=== PATIENT | female | born 1945 | race Caucasian/White ===

== ENCOUNTER 2016-12-19 16:34 | Inpatient (IN) | payer OTHER ==
[~2016-12-19] VITALS: Ht 167.6 cm; Wt 86.7 kg
[2016-12-19] MEDS ORDERED: ASPI81TA31 PO (17:01)
[2016-12-19] MEDS ORDERED: SIMV40TA5 PO (17:01)
[2016-12-19 17:32] LABS: *BILIRUBIN,URIN NEGATIVE (NEGATIVE); *BLOOD, URINE Trace-lysed (NEGATIVE); *COLOR,URINE YELLOW (YELLOW); *KETONES,URINE NEGATIVE (NEGATIVE); *PROTEIN,URINE NEGATIVE (NEGATIVE); NITRITE, URINE NEGATIVE (NEGATIVE); UGLUCOSE NEGATIVE (NEGATIVE)
[2016-12-19 17:33] LABS: BASOPHILS # (AUTO) 0.1 K/uL (0.0-8.0); BASOPHILS % (AUTO) 0.6 % (0.0-2.0); EOSINOPHILS # (AUTO) 0.2 K/uL (0.0-0.7); EOSINOPHILS % (AUTO) 2.1 % (0.0-7.0); HEMATOCRIT 38.2 % (31.2-41.9); HEMOGLOBIN 12.9 g/dL (10.9-14.3); LYMPHOCYTES # (AUTO) 1.4 K/uL (20.0-40.0); LYMPHOCYTES % (AUTO) 16.5 % (20.5-51.5); MEAN CORPUSCULAR HEMOGLOBIN 29.9 uug (24.7-32.8); MEAN CORPUSCULAR HGB CONC 34 g/dL (32.3-35.6); MEAN CORPUSCULAR VOLUME 88.1 fL (75.5-95.3); MONOCYTES # (AUTO) 0.7 K/uL (2.0-10.0); MONOCYTES % (AUTO) 8.2 % (0.0-11.0); NEUTROPHILS % (AUTO) 72.6 % (38.5-71.5); PLATELET COUNT (AUTO) 151 K/uL (179-408); RED BLOOD CELL COUNT(AUTO) 4.34 MIL/uL (3.63-4.92); RED CELL DISTRIBUTION WIDTH 14.9 % (12.3-17.7); WHITE BLOOD COUNT (AUTO) 8.4 K/uL (3.8-11.8)
[2016-12-19 17:36] LABS: CALCIUM 9.1 mg/dL (8.5-10.1); CREATININE 0.9 mg/dL (0.6-1.3); POTASSIUM 4.1 mmol/L (3.5-5.1)
[2016-12-19 17:39] LABS: *CLARITY,URINE HAZY (CLEAR); LEUKOCYTE ESTERASE ,URINE TRACE (NEGATIVE)
[2016-12-19 17:40] LABS: BACTERIA,URINE MANY /HPF (NONE SEEN); SQUAMOUS EPITHELIAL CELL,UR MODERATE /HPF (NONE SEEN); WBC,URINE 20-50 /HPF (0-3)
[2016-12-19 17:45] LABS: ALBUMIN 3.7 g/dL (3.4-5.0); BILIRUBIN,DIRECT 0.2 mg/dL (0.0-0.2); BILIRUBIN,TOTAL 0.7 mg/dL (0.2-1.0); TOTAL PROTEIN, SERUM 7.5 g/dL (6.4-8.2)
[2016-12-19] MEDS ORDERED: IOHEXOL 300MG/ML 100 ML INFUS..BTL ONE (17:56)
[2016-12-19] MEDS ORDERED: IV NORMAL SALINE 250 ML IV ONE (17:56)
[2016-12-19] MEDS ORDERED: NORMAL SALINE FLUSH 10 ML DISP.SYRIN ONE (17:56)
[2016-12-19] MEDS ORDERED: CEFTRIAXONE 1 G in IV DEXTROSE 5% 50 ML IV ONE (18:15)
[2016-12-19] MEDS ORDERED: CEFTRIAXONE 1 G VIAL ONE (18:28)
[2016-12-19] MEDS ORDERED: HYDROCODONE/APAP 5-325MG TABLET PO PRN (18:45)
[2016-12-19] MEDS ORDERED: Z GUARD REMEDY PASTE 57 GM TUBE TOP PRN (18:45)
[2016-12-19] MEDS ORDERED: ONDANSETRON 4 MG/2 ML VIAL IV PRN (18:45)
[2016-12-19] MEDS ORDERED: ACETAMINOPHEN 325 MG TABLET PO PRN (18:45)
[2016-12-19] MEDS ORDERED: TEMAZEPAM 7.5 MG CAPSULE PO PRN (18:45)
[2016-12-19] MEDS ORDERED: MORPHINE SULFATE 2 MG/1 ML DISP.SYRIN IV PRN (18:45)
[2016-12-19] MEDS ORDERED: MAGNESIUM HYDROXIDE 30 ML LIQUID UDC PO PRN (18:45)
[2016-12-19 20:20] VITALS: BP 132/73
--- NOTE | 2016-12-19 20:22 | NUR ---
Pt. admitted to [facility], under care of Dr. Romero Belongs List completed
--- NOTE | 2016-12-19 20:30 | NUR ---
PATIENT RECEIVED FROM ER BIB STAFF VIA [facility]. PLACED IN ROOM 215. PT IS ALERT AND ORIENTED, ABLE TO MAKE NEEDS KNOW. VS STABLE. ON RA WITH SAT WNL. NO ACUTE DISTRESS NOTED. DENIES PAIN AT THIS TIME. ALL NEEDS ATTENDED AT THIS TIME. WILL CONTINUE TO MONITOR.
[2016-12-19] MEDS: ENOXAPARIN SODIUM 40 MG/0.4 ML DISP.SYRIN SQ SCH (21:00)
[2016-12-19] MEDS: SIMVASTATIN 40 MG TABLET PO SCH (21:53)
--- NOTE | 2016-12-19 21:53 | NUR ---
PATIENT REFUSED 2100 LOVENOX, EXPLAINED RISKS AND BENEFITS, BUT CONTINUED TO REFUSE. WILL CONTINUE TO MONITOR.
[2016-12-20 04:00] VITALS: BP 93/50
--- NOTE | 2016-12-20 05:46 | NUR ---
PT SLEPT WELL, NO ACUTE DISTRESS THROUGHOUT SHIFT. NO S/S OF RESPIRATORY DISTRESS NOTED. NO C/O PAIN. ALL NEEDS MET. CALL LIGHT WITHIN REACH. SAFETY AND COMFORT MAINTAINED.
[2016-12-20] MEDS: PANTOPRAZOLE SODIUM 40 MG TABLET.DR PO SCH (06:02)
[2016-12-20 06:57] LABS: BASOPHILS % (AUTO) 0.2 % (0.0-2.0); EOSINOPHILS # (AUTO) 0.4 K/uL (0.0-0.7); EOSINOPHILS % (AUTO) 4.7 % (0.0-7.0); HEMATOCRIT 35.3 % (31.2-41.9); HEMOGLOBIN 12.3 g/dL (10.9-14.3); LYMPHOCYTES # (AUTO) 0.7 K/uL (20.0-40.0); LYMPHOCYTES % (AUTO) 9.3 % (20.5-51.5); MEAN CORPUSCULAR HGB CONC 35 g/dL (32.3-35.6); MEAN CORPUSCULAR VOLUME 89.2 fL (75.5-95.3); MONOCYTES # (AUTO) 0.5 K/uL (2.0-10.0); MONOCYTES % (AUTO) 6.9 % (0.0-11.0); NEUTROPHILS # (AUTO) 6.2 K/uL (1.8-8.9); NEUTROPHILS % (AUTO) 78.9 % (38.5-71.5); PLATELET COUNT (AUTO) 160 K/uL (179-408); RED BLOOD CELL COUNT(AUTO) 3.96 MIL/uL (3.63-4.92); RED CELL DISTRIBUTION WIDTH 14.8 % (12.3-17.7); WHITE BLOOD COUNT (AUTO) 7.8 K/uL (3.8-11.8)
[2016-12-20 07:15] LABS: ALBUMIN 3.1 g/dL (3.4-5.0); BILIRUBIN,TOTAL 0.6 mg/dL (0.2-1.0); CALCIUM 8.6 mg/dL (8.5-10.1); CREATININE 0.9 mg/dL (0.6-1.3); MAGNESIUM 1.9 mg/dL (1.8-2.4); PHOSPHOROUS 4.7 mg/dL (2.5-4.9); POTASSIUM 4.6 mmol/L (3.5-5.1); TOTAL PROTEIN, SERUM 6.7 g/dL (6.4-8.2)
--- NOTE | 2016-12-20 08:30 | NUR ---
AWAKE COOPERATE WELL NO SOB OR PAIN ON FALL PRECAUTION BED ALARM ON AND CALL NICK WITHIN REACH
[2016-12-20] MEDS: ASPIRIN 81 MG TAB.CHEW PO SCH (08:47)
--- NOTE | 2016-12-20 09:30 | NUR ---
ASSIST OOB TO BRP AND UP IN CHAIR DOING WELL ,EAT BREAKFAST WITH GOOD APPETITE
[2016-12-20 11:41] VITALS: BP 122/63
--- NOTE | 2016-12-20 13:42 | NUR ---
WOUND CARE CONSULT: PT PRESENTS WITH LEFT LOWER LEG ULCER AND CRUSTED WOUND, PRESENT ON ADMISSION. RECOMMEND DPM/SURGICAL CONSULT. PT ABLE TO TURN AND REPOSITION IN BED AND AMBULATES TO BATHROOM PER NURSING STAFF. ALL SKIN PROTECTION AND WOUND RECOMMENDATIONS DISCUSSED WITH NURSING STAFF. MD IN AGREEMENT WITH PLAN OF CARE. Addendum: 12/20/16 at 1343 by ENMA VIZCARRA RN Amended: Links added.
[2016-12-20 16:34] VITALS: BP 114/72
--- NOTE | 2016-12-20 17:30 | NUR ---
RESTING WELL HEMODYNAMIC STATUS STABLE PAIN UNDER CONTROL SAFETY MEASURE PROVIDED CALL LIGHT WITHIN REACH
[2016-12-20] MEDS ORDERED: CEFTRIAXONE 1 G in IV DEXTROSE 5% 50 ML IV SCH (18:00)
--- NOTE | 2016-12-20 19:15 | NUR ---
PATIENT IN BED ALERT ORIENTED, ASSISTED TO BATHROOM FOR BLADDER ELIMINATION, NO SOB NO CHEST PAIN NOTED, TEACH PATIENT TO ELEVATE BOTH LOWER EXTREMETIES WITH PILLOW TO AVOID SWELLING OF LOWER EXTREMETY.
[2016-12-20 20:19] VITALS: BP 106/56
[2016-12-20] MEDS: ENOXAPARIN SODIUM 40 MG/0.4 ML DISP.SYRIN SQ SCH (21:00)
[2016-12-20] MEDS: SIMVASTATIN 40 MG TABLET PO SCH (21:00)
--- NOTE | 2016-12-20 21:15 | NUR ---
PATIENT REFUSED MEDICATIONS, EXPLAINED RISK AND BENEFIT, PATIENT STRONGLY REFUSED, NO SOB NO CHEST, DENIES PAIN OF LEFT POSTERIOR AND ANTERIOR LEG WOUND, KEPT SITE COVERED WITH DRESSING, ELEVATED WITH PILLOW, CALL LIGHT WITHIN REACH.
[2016-12-21 05:16] VITALS: BP 113/69
--- NOTE | 2016-12-21 05:16 | NUR ---
PATIENT ON AND OFF, REFUSED SLEEPING PILLS, GIVEN MORPHINE IV FOR MOANING/PAIN OF ABDOMEN AND LEFT LEG WOUND WITH HELP AFTER 30 MINUTES, KEPT LEGS ELEVATED, NO SOB NO CHEST PAIN NOTED, CONT TO MONITOR.
--- NOTE | 2016-12-21 05:18 | NUR ---
PATIENT SLEEP ON AND OFF ALL NIGHT, OFFERED SLEEPING PILL BUT REFUSED. KEPT COMFORTABLE.
[2016-12-21] MEDS: PANTOPRAZOLE SODIUM 40 MG TABLET.DR PO SCH (06:12)
--- NOTE | 2016-12-21 06:15 | NUR ---
PATIENT REFUSED PROTONIX, THROW AWAY THE MEDICATION AND STATED i DON'T NEED IT. EXPLAINED THE RISK AND BENEFIT STILL REFUSED THE MEDS.
[2016-12-21 07:00] LABS: BASOPHILS % (AUTO) 0.3 % (0.0-2.0); EOSINOPHILS # (AUTO) 0.4 K/uL (0.0-0.7); EOSINOPHILS % (AUTO) 6.6 % (0.0-7.0); HEMATOCRIT 36.7 % (31.2-41.9); HEMOGLOBIN 12.6 g/dL (10.9-14.3); LYMPHOCYTES # (AUTO) 0.9 K/uL (20.0-40.0); LYMPHOCYTES % (AUTO) 15.2 % (20.5-51.5); MEAN CORPUSCULAR HEMOGLOBIN 30.6 uug (24.7-32.8); MEAN CORPUSCULAR HGB CONC 34 g/dL (32.3-35.6); MEAN CORPUSCULAR VOLUME 89.1 fL (75.5-95.3); MONOCYTES # (AUTO) 0.6 K/uL (2.0-10.0); MONOCYTES % (AUTO) 9.9 % (0.0-11.0); NEUTROPHILS # (AUTO) 4.1 K/uL (1.8-8.9); PLATELET COUNT (AUTO) 158 K/uL (179-408); RED BLOOD CELL COUNT(AUTO) 4.12 MIL/uL (3.63-4.92); RED CELL DISTRIBUTION WIDTH 15.2 % (12.3-17.7)
[2016-12-21 07:07] LABS: CALCIUM 8.9 mg/dL (8.5-10.1); CREATININE 0.9 mg/dL (0.6-1.3); POTASSIUM 4.4 mmol/L (3.5-5.1)
--- NOTE | 2016-12-21 07:34 | NUR ---
Sleeping, comfortable. Bed alarm on
[2016-12-21 08:05] LABS: PLATELET ESTIMATE ADEQUATE
[2016-12-21 08:21] LABS: BAND % (MANUAL) 2 % (0-10); EOSINOPHILS % (MANUAL) 4 % (0-8); LYMPHOCYTES % (MANUAL) 11 % (20-40); MONOCYTES % (MANUAL) 4 % (2-10); NEUTROPHILS % (MANUAL) 79 % (42-75)
[2016-12-21] MEDS: ASPIRIN 81 MG TAB.CHEW PO SCH (08:29)
[2016-12-21 11:15] VITALS: BP 112/62
--- NOTE | 2016-12-21 13:00 | NUR ---
Wound care to left leg done as ordered. Bilateral foot care done
[2016-12-21 15:45] VITALS: BP 144/79
--- NOTE | 2016-12-21 17:11 | NUR ---
With fair appetite. denies pain and distress. Afebrile
[2016-12-21 19:00] VITALS: BP 153/53
[2016-12-21] MEDS: SIMVASTATIN 40 MG TABLET PO SCH (20:32)
[2016-12-21] MEDS: ENOXAPARIN SODIUM 40 MG/0.4 ML DISP.SYRIN SQ SCH (20:33)
[2016-12-21] MEDS: SULFAMETH/TRIMETH 800/160 MG TABLET PO SCH (20:33)
--- NOTE | 2016-12-21 21:15 | NUR ---
PATIENT ALERT ABLE TO MAKE NEEDS KNOWN, NO SOB NO CHEST PAIN, LEFT LEG DRESSING INTACT, TAUGHT TO ELEVATE THE LEGS WITH PILLOWS, CONT TO MONITOR.
[2016-12-22 05:00] VITALS: BP 106/52
--- NOTE | 2016-12-22 05:48 | NUR ---
PATIENT SLEPT MOST OF THE NIGHT, DENIES PAIN, NO SOB NO CHEST PAIN NOTED, KEPT LEGS ELEVATED, NO ASE NOTED FROM ABX, CONT TO MONITOR.
[2016-12-22] MEDS: PANTOPRAZOLE SODIUM 40 MG TABLET.DR PO SCH (06:22)
[2016-12-22 06:38] LABS: BASOPHILS % (AUTO) 0.5 % (0.0-2.0); EOSINOPHILS # (AUTO) 0.4 K/uL (0.0-0.7); EOSINOPHILS % (AUTO) 5.9 % (0.0-7.0); HEMATOCRIT 36.5 % (31.2-41.9); HEMOGLOBIN 12.4 g/dL (10.9-14.3); LYMPHOCYTES % (AUTO) 15.6 % (20.5-51.5); MEAN CORPUSCULAR HEMOGLOBIN 30.5 uug (24.7-32.8); MEAN CORPUSCULAR HGB CONC 34 g/dL (32.3-35.6); MEAN CORPUSCULAR VOLUME 89.9 fL (75.5-95.3); MONOCYTES # (AUTO) 0.6 K/uL (2.0-10.0); MONOCYTES % (AUTO) 8.6 % (0.0-11.0); NEUTROPHILS # (AUTO) 4.6 K/uL (1.8-8.9); NEUTROPHILS % (AUTO) 69.4 % (38.5-71.5); PLATELET COUNT (AUTO) 160 K/uL (179-408); RED BLOOD CELL COUNT(AUTO) 4.06 MIL/uL (3.63-4.92); RED CELL DISTRIBUTION WIDTH 14.7 % (12.3-17.7); WHITE BLOOD COUNT (AUTO) 6.6 K/uL (3.8-11.8)
[2016-12-22 06:46] LABS: CALCIUM 8.9 mg/dL (8.5-10.1); CREATININE 0.9 mg/dL (0.6-1.3); POTASSIUM 4.5 mmol/L (3.5-5.1)
[2016-12-22 07:29] LABS: LYMPHOCYTES % (MANUAL) 23 % (20-40); NEUTROPHILS % (MANUAL) 66 % (42-75)
[2016-12-22 07:30] LABS: EOSINOPHILS % (MANUAL) 5 % (0-8); MONOCYTES % (MANUAL) 6 % (2-10); PLATELET ESTIMATE ADEQUATE
[2016-12-22] MEDS: SULFAMETH/TRIMETH 800/160 MG TABLET PO SCH (09:13)
[2016-12-22] MEDS: ASPIRIN 81 MG TAB.CHEW PO SCH (09:13)
== END 2016-12-22 14:30 | disposition home or self-care (01) | DRG 690 ==
LOC: ER 16:36 → MED 20:06
PROVIDERS: ADMIT Family Medicine; ATTEND Family Medicine
DX: N39.0 Urinary tract infection, site not specified (principal); E78.5 Hyperlipidemia, unspecified; F03.90 Unspecified dementia, unspecified severity, without behavioral disturbance, psychotic disturbance, mood disturbance, and anxiety; E66.9 Obesity, unspecified; I11.9 Hypertensive heart disease without heart failure; Z79.899 Other long term (current) drug therapy; Z68.30 Body mass index [BMI] 30.0-30.9, adult; B96.4 Proteus (mirabilis) (morganii) as the cause of diseases classified elsewhere; K57.90 Diverticulosis of intestine, part unspecified, without perforation or abscess without bleeding; K80.20 Calculus of gallbladder without cholecystitis without obstruction
CPT/HCPCS: 36415; 83690; 83735; 84100; 85025; 85730; 87077; 87086; 93005; A4663; J0696; J1650; J2270; J3490; J7040; J7050; J7060; Q9967

== ENCOUNTER 2017-06-05 17:20 | Inpatient (IN) | payer MEDICARE, MEDICAID ==
[~2017-06-05] VITALS: Ht 167.6 cm; Wt 88.9 kg
[~2017-06-05 17:20] MED LIST: ASPI81TA31 PO; SIMV40TA5 PO
[2017-06-05] MEDS ORDERED: PIPERACILLIN SODIUM/TAZOBACTAM 3.375 G in IV DEXTROSE 5% 50 ML IV ONE (18:00)
[2017-06-05] MEDS ORDERED: IV NORMAL SALINE 1000 ML BAG IV ONE (18:00)
[2017-06-05] MEDS ORDERED: VANCOMYCIN IV 1,000 MG in IV DEXTROSE 5% 250 ML IV ONE (18:00)
[2017-06-05 18:36] LABS: CARBON DIOXIDE 31 mmol/L (21-32); CHLORIDE 108 mmol/L (98-107); CREATININE 0.8 mg/dL (0.6-1.3); GLUCOSE 113 mg/dL (74-106); POTASSIUM 4.2 mmol/L (3.5-5.1); UREA NITROGEN, BLOOD 21 mg/dL (7-18)
[2017-06-05 18:39] LABS: EOSINOPHILS # (AUTO) 0.3 K/uL (0.0-0.7); LYMPHOCYTES # (AUTO) 1.2 K/UL (0.8-4.8); MONOCYTES # (AUTO) 0.6 K/UL (0.1-1.30)
[2017-06-05 18:44] LABS: BASOPHILS % (AUTO) 0.5 % (0.0-2.0); EOSINOPHILS % (AUTO) 4.4 % (0.0-7.0); HEMATOCRIT 38.1 % (37-47); HEMOGLOBIN 12.9 G/DL (12.0-16.0); LYMPHOCYTES % (AUTO) 15.5 % (20.5-51.5); MEAN CORPUSCULAR HEMOGLOBIN 30.7 UUG (27.0-31.0); MEAN CORPUSCULAR HGB CONC 34 g/dL (32.0-37.0); MEAN CORPUSCULAR VOLUME 90.4 FL (81.0-99.0); MONOCYTES % (AUTO) 7.7 % (0.0-11.0); NEUTROPHILS # (AUTO) 5.8 K/UL (1.8-8.9); NEUTROPHILS % (AUTO) 71.9 % (38.5-71.5); PLATELET COUNT (AUTO) 201 K/UL (150-450); RED BLOOD CELL COUNT(AUTO) 4.22 MIL/UL (4.2-5.4); WHITE BLOOD COUNT (AUTO) 7.9 K/UL (4.0-11.2)
[2017-06-05 18:48] LABS: ALANINE AMINOTRANSFERASE 21 U/L (14-59); ALKALINE PHOSPHATASE 108 U/L (50-136); ASPARTATE AMINOTRANSFERASE 17 U/L (15-37); BILIRUBIN,DIRECT 0.1 mg/dL (0.0-0.2); BILIRUBIN,TOTAL 0.3 mg/dL (0.2-1.0); TOTAL PROTEIN, SERUM 7.2 g/dL (6.4-8.2)
--- NOTE | 2017-06-05 18:56 | NUR ---
Pt refused EKG.
[2017-06-05 19:03] LABS: EOSINOPHILS % (MANUAL) 1 % (0-8); LYMPHOCYTES % (MANUAL) 13 % (20-40); MONOCYTES % (MANUAL) 6 % (2-10); NEUTROPHILS % (MANUAL) 80 % (42-75)
[2017-06-05] MEDS ORDERED: PIPERACILLIN/TAZOBACTAM/D5W 50 ML IV ONE (19:53)
[2017-06-05] MEDS ORDERED: VANCOMYCIN IV 200 ML ONE (20:18)
[2017-06-05] MEDS ORDERED: ONDANSETRON 4 MG/2 ML VIAL IV ONE ×2 (21:00→22:30)
[2017-06-05] MEDS ORDERED: MORPHINE SULFATE 2 MG/1 ML DISP.SYRIN IV ONE ×2 (21:00→22:30)
[2017-06-05] MEDS ORDERED: ONDANSETRON 4 MG/2 ML VIAL ONE ×2 (21:11→22:42)
[2017-06-05] MEDS ORDERED: ACETAMINOPHEN/CODEINE 300-30 MG TABLET PO ONE (21:15)
[2017-06-05] MEDS ORDERED: MORPHINE SULFATE 4 MG/1 ML DISP.SYRIN ONE (21:21)
[2017-06-05] MEDS ORDERED: ACETAMINOPHEN/CODEINE 300-30 MG TABLET ONE (21:46)
--- NOTE | 2017-06-05 21:52 | NUR ---
Call placed to [facility], Dr. Reagan will be paged.
[2017-06-05] MEDS ORDERED: TEMAZEPAM 15 MG CAPSULE PO PRN (22:30)
[2017-06-05] MEDS ORDERED: MAGNESIUM HYDROXIDE 30 ML LIQUID UDC PO PRN (22:30)
[2017-06-05] MEDS ORDERED: ONDANSETRON 4 MG/2 ML VIAL IV PRN (22:30)
[2017-06-05] MEDS ORDERED: ACETAMINOPHEN 325 MG TABLET PO PRN (22:30)
[2017-06-05] MEDS ORDERED: MORPHINE SULFATE 2 MG/1 ML DISP.SYRIN ONE (22:43)
--- NOTE | 2017-06-05 22:56 | NUR ---
Pt. admitted to TELE, under care of Dr. Reagan Belongs List completed
--- NOTE | 2017-06-05 23:00 | NUR ---
Received patient from ED via gurney, alert, awake, oriented and verbally responsive. Assessment done, noted with BLE edema (left 3+, right 2+) elevated with pillow. Also noted with left leg cellulitis, wound care rendered, cleansed with NSS and covered with dry dressing. Patient tolerated well with the procedure. Patient complained of pain 6/10 on his left leg, Morphine 2mg was given at ED prior to transport. Routine admission done. Call light in reach. Safety measures provided. Will continue to monitor.
[2017-06-05 23:45] VITALS: BP 130/66
[2017-06-06] MEDS ORDERED: PIPERACILLIN SODIUM/TAZO 3.375 GM VIAL ONE (00:42)
[2017-06-06 04:00] VITALS: BP 120/64
--- NOTE | 2017-06-06 05:35 | NUR ---
Patient refused blood draw for AM labs.
[2017-06-06] MEDS: PIPERACILLIN/TAZOBACTAM/D5W 3.375 G in PREMIXED 1 EACH IV SCH ×3 (05:56→21:56)
[2017-06-06] MEDS: PANTOPRAZOLE SODIUM 40 MG TABLET.DR PO SCH (07:21)
--- NOTE | 2017-06-06 07:48 | NUR ---
Resident slept well the whole night. Denies of pain and no signs of respiratory distress. All due meds given as ordered. All needs attended to. Endorsed to morning shift nurse to continue to monitor.
[2017-06-06] MEDS: ASPIRIN 81 MG TAB.CHEW PO SCH (08:17)
[2017-06-06] MEDS: ASCORBIC ACID 500 MG TABLET PO SCH (08:17)
[2017-06-06] MEDS: ZINC SULFATE 220 MG CAPSULE PO SCH (08:17)
[2017-06-06] MEDS: VANCOMYCIN IV 1,250 MG in IV DEXTROSE 5% 500 ML IV SCH (11:54)
[2017-06-06 12:00] VITALS: BP 104/54
[2017-06-06 13:36] LABS: BASOPHILS % (AUTO) 0.4 % (0.0-2.0); EOSINOPHILS # (AUTO) 0.3 K/uL (0.0-0.7); EOSINOPHILS % (AUTO) 5.1 % (0.0-7.0); HEMOGLOBIN 11.9 g/dL (10.9-14.3); LYMPHOCYTES # (AUTO) 0.8 K/uL (20.0-40.0); LYMPHOCYTES % (AUTO) 13.4 % (20.5-51.5); MEAN CORPUSCULAR HEMOGLOBIN 31.1 uug (24.7-32.8); MEAN CORPUSCULAR HGB CONC 34 g/dL (32.3-35.6); MEAN CORPUSCULAR VOLUME 91.5 fL (75.5-95.3); MONOCYTES # (AUTO) 0.4 K/uL (2.0-10.0); MONOCYTES % (AUTO) 6.9 % (0.0-11.0); NEUTROPHILS # (AUTO) 4.6 K/uL (1.8-8.9); NEUTROPHILS % (AUTO) 74.2 % (38.5-71.5); PLATELET COUNT (AUTO) 153 K/uL (179-408); RED BLOOD CELL COUNT(AUTO) 3.82 MIL/uL (3.63-4.92); WHITE BLOOD COUNT (AUTO) 6.3 K/uL (3.8-11.8)
[2017-06-06 13:46] LABS: ALANINE AMINOTRANSFERASE 20 U/L (14-59); ALKALINE PHOSPHATASE 78 U/L (50-136); ASPARTATE AMINOTRANSFERASE 17 U/L (15-37); BILIRUBIN,TOTAL 0.5 mg/dL (0.2-1.0); CARBON DIOXIDE 28 mmol/L (21-32); CHLORIDE 108 mmol/L (98-107); CHOLESTEROL 152 mg/dL (<200); CREATININE 0.8 mg/dL (0.6-1.3); GLUCOSE 105 mg/dL (74-106); HDL CHOLESTEROL 39 mg/dL (40-60); IRON, SERUM 76 ug/dL (50-175); MAGNESIUM 1.8 mg/dL (1.8-2.4); PHOSPHOROUS 3.3 mg/dL (2.5-4.9); POTASSIUM 4.6 mmol/L (3.5-5.1); TOTAL PROTEIN, SERUM 6.3 g/dL (6.4-8.2); TRIGLYCERIDES 114 MG/DL (30-150); UREA NITROGEN, BLOOD 14 mg/dL (7-18)
--- NOTE | 2017-06-06 14:00 | NUR ---
pT REFUSED to have silverdene ointment. Explained purpose of medications to patient. Pt continues to refuse.
[2017-06-06 14:27] LABS: THYROID STIMULATING HORMONE 2.282 mIU/mL (0.358-3.740)
[2017-06-06] MEDS: SILVER SULFADIAZINE 1% CREAM 50 GM TP SCH (14:30)
--- NOTE | 2017-06-06 14:30 | NUR ---
WOUND CARE CONSULT: PT PRESENTS WITH LARGE ULCER TO LEFT LOWER LEG, PRESENT ON ADMISSION. PT NOTED TO HAVE RED, WARM SWOLLEN LOWER LEGS. RECOMMEND DPM CONSULT. WOUND RECOMMENDATIONS DISCUSSED WITH NURSING STAFF. PT IS CONTINENT AND AMBULATORY. WILL SEE PRN. YIN IN AGREEMENT WITH PLAN OF CARE. Addendum: 06/06/17 at 1432 by ENMA VIZCARRA RN Amended: Links added.
[2017-06-06 16:04] VITALS: BP 110/60
--- NOTE | 2017-06-06 16:38 | NUR ---
Clinical Pharmacy Note: Vancomycin Pharmacy to Dose Subjective: To start vancomycin in this 72 yo female for indication on cellulitis Objective: height : 167 cm weight: 89 kg BMI 31.6 BUN 21 Scr 0.8 Wbc 7.9 temp 98.6 1gm vanco given in ER 06/05 @ 2019 Assessment/Plan As renal function appears stable, will start regimen of 1250 Q17hrs for expected trough of 15.16. First dose today at 1000. Will check trough before 4th scheduled dose (not ordered yet). Will also follow renal function and change to dose per level if appears unstable. Will follow
--- NOTE | 2017-06-06 18:30 | NUR ---
Pt is in no acute distress. Call light is within reach.
--- NOTE | 2017-06-06 19:30 | NUR ---
Received patient awake in bed, no SOB c/o left leg discomfort. Vital signs WNL. Noted wet floor w/ full of fresh urine. Patient stated she just urinated on the floor because she cant control her bladder. Noted bedside commode in room, but patient refused to use it. Instructed to use the call light when needed. Patient suddenly changed her mood, upset & became verbally abusive. Advised to use diaper but she's also refusing. Called [facility] for room cleaning.
[2017-06-06] MEDS: DOCUSATE SODIUM 100 MG CAPSULE PO SCH (20:03)
[2017-06-06] MEDS: HYDROCODONE/APAP 5-325MG TABLET PO PRN (20:03)
[2017-06-06] MEDS: SIMVASTATIN 40 MG TABLET PO SCH (20:03)
[2017-06-06] MEDS ORDERED: LIDOCAINE 2%-EPI 1:100,000 20 ML VIAL TP ONE (20:15)
[2017-06-06] MEDS ORDERED: EPINEPHRINE INJ ONE (20:30)
[2017-06-06] MEDS ORDERED: LIDOCAINE HCL INJ ONE (20:30)
[2017-06-06] MEDS ORDERED: MORPHINE SULFATE 2 MG/1 ML DISP.SYRIN IV PRN (20:30)
--- NOTE | 2017-06-06 20:49 | NUR ---
Dr. Jason Perez in room, seen & examined this patient. Obtained consent for Left Lower Extremity Ulcer Staged Debridement, copy in chart. Procedure explained, patient verbalized understanding. Wound culture done, specimen sent to the lab.
--- NOTE | 2017-06-06 21:15 | NUR ---
S/P Left leg wound debridement, patient tolerated.
[2017-06-06 22:01] VITALS: BP 120/61
--- NOTE | 2017-06-07 01:00 | NUR ---
Patient urinated again on the floor, still doesn't want to use the bedside commode, bedpan or toilet. Charge nurse aware about patient's behavior. Called [facility] again for room mopping.
[2017-06-07] MEDS: VANCOMYCIN IV 1,250 MG in IV DEXTROSE 5% 500 ML IV SCH ×2 (03:39→20:58)
--- NOTE | 2017-06-07 04:30 | NUR ---
Again, patient voided on the floor. Applied multiple dry blankets to absorb urine. Safety observed.
[2017-06-07 05:34] VITALS: BP 124/63
[2017-06-07] MEDS: PIPERACILLIN/TAZOBACTAM/D5W 3.375 G in PREMIXED 1 EACH IV SCH ×3 (05:57→22:52)
[2017-06-07] MEDS: PANTOPRAZOLE SODIUM 40 MG TABLET.DR PO SCH (06:02)
[2017-06-07 06:04] LABS: HEPATITIS B SURFACE AG Negative (Negative)
--- NOTE | 2017-06-07 07:15 | NUR ---
No acute resp distress, patient still asleep at this time. Report given to Mahin HA.
[2017-06-07] MEDS: ASPIRIN 81 MG TAB.CHEW PO SCH (08:23)
[2017-06-07] MEDS: FLUCONAZOLE 200 MG TABLET PO SCH (08:23)
[2017-06-07] MEDS: ZINC SULFATE 220 MG CAPSULE PO SCH (08:23)
[2017-06-07] MEDS: ASCORBIC ACID 500 MG TABLET PO SCH (08:23)
[2017-06-07] MEDS: CADEXOMER IODINE 40 GM TUBE TOP SCH (08:24)
[2017-06-07] MEDS: SILVER SULFADIAZINE 1% CREAM 50 GM TP SCH (08:24)
[2017-06-07] MEDS: KETOCONAZOLE 2% CREAM 30 GM TUBE TP SCH (08:25)
--- NOTE | 2017-06-07 08:49 | NUR ---
DISPERSION MIXER WOUND TREATMENT ORDERS CLARIFIED WITH DPM. SILVADENE DISCONTINUED AND CHANGED TO IODOSORB TOPICAL. SEE CLARIFIED ORDERS.
--- NOTE | 2017-06-07 09:00 | NUR ---
AWAKE COOPERATE EAT BREAKFAST MOD AMT ON FALL PRECAUTION CALL NICK IN REACH AND BED ALARM ON DSG INTACT ON LEFT LEG NO SOB OR PAIN
[2017-06-07 11:35] VITALS: BP 111/56
[2017-06-07] MEDS: HYDROCODONE/APAP 5-325MG TABLET PO PRN ×2 (14:01→20:54)
--- NOTE | 2017-06-07 14:57 | NUR ---
Clinical Pharmacy Note: Vancomycin Pharmacy to Dose Subjective: To continue vancomycin in this 72 yo female for indication on cellulitis Objective: height : 167 cm weight: 89 kg BMI 31.6 BUN 21 (06/06) Scr 0.8 (06/06) Wbc 7.9 (06/06) temp 98.6 1gm vanco given in ER 06/05 @ 2019 Assessment/Plan Will continue regimen of 1250 Q17hrs for expected trough of 15.16. second dose given today early am at 0300. Will check trough before 4th scheduled dose (due tomorrow 06/08 at 1230). Will check level and adjust as needed. Will also follow renal function and change to dose per level if appears unstable. Will follow
[2017-06-07 15:58] VITALS: BP 116/66
[2017-06-07 16:21] LABS: *BILIRUBIN,URIN NEGATIVE (NEGATIVE); *BLOOD, URINE NEGATIVE (NEGATIVE); *CLARITY,URINE CLEAR (CLEAR); *COLOR,URINE YELLOW (YELLOW); *KETONES,URINE NEGATIVE (NEGATIVE); *PROTEIN,URINE NEGATIVE (NEGATIVE); *UROBILINOGEN,URINE 0.2 E.U./dl (NORMAL); LEUKOCYTE ESTERASE ,URINE NEGATIVE (NEGATIVE); NITRITE, URINE NEGATIVE (NEGATIVE); UGLUCOSE NEGATIVE (NEGATIVE)
[2017-06-07 16:26] LABS: BACTERIA,URINE FEW /HPF (NONE SEEN); RBC,URINE 0-3 /HPF (0-3); SQUAMOUS EPITHELIAL CELL,UR FEW /HPF (NONE SEEN); WBC,URINE 0-3 /HPF (0-3)
--- NOTE | 2017-06-07 18:00 | NUR ---
HEMODYNAMIC STATUS STABLE PAIN UNDER CONTROL NO ACUTE DISTRESS SAFETY MEASURE PROVIDED BED ALARM ON AND CALL NICK IN REACH
[2017-06-07 20:52] VITALS: BP 131/63
[2017-06-07] MEDS: SIMVASTATIN 40 MG TABLET PO SCH (20:53)
[2017-06-07] MEDS: DOCUSATE SODIUM 100 MG CAPSULE PO SCH (20:54)
[2017-06-07] MEDS ORDERED: SIMVASTATIN 10 MG TABLET PO SCH (21:00)
[2017-06-07] MEDS ORDERED: HYDROMORPHONE 2 MG/1 ML DISP.SYRIN ONE (21:21)
[2017-06-08 04:54] VITALS: BP 121/43
[2017-06-08] MEDS: PIPERACILLIN/TAZOBACTAM/D5W 3.375 G in PREMIXED 1 EACH IV SCH ×2 (05:14→13:33)
[2017-06-08] MEDS: PANTOPRAZOLE SODIUM 40 MG TABLET.DR PO SCH (05:37)
[2017-06-08 06:07] LABS: HEPATITIS B SURFACE AB Reactive (.)
--- NOTE | 2017-06-08 07:00 | NUR ---
No significant change, medicated for pain PRN. Kept lower extremities elevated on a pillow. For Vanco trough level at 12:30NN today. Vital signs stable. No acute resp distress. Needs attended.
[2017-06-08] MEDS: ASCORBIC ACID 500 MG TABLET PO SCH (08:12)
[2017-06-08] MEDS: ZINC SULFATE 220 MG CAPSULE PO SCH (08:12)
[2017-06-08] MEDS: FLUCONAZOLE 200 MG TABLET PO SCH (08:12)
[2017-06-08] MEDS: ASPIRIN 81 MG TAB.CHEW PO SCH (08:12)
[2017-06-08] MEDS: KETOCONAZOLE 2% CREAM 30 GM TUBE TP SCH (08:13)
[2017-06-08] MEDS: CADEXOMER IODINE 40 GM TUBE TOP SCH (08:13)
--- NOTE | 2017-06-08 08:30 | NUR ---
AWAKE COOPERATE NO SOB OR PAIN EAT BREAKFAST MOD AMT DSG AT LEFT LEG DRY INTACT ON FALL PRECAUTION CALL LIGHT IN REACH
[2017-06-08] MEDS: HYDROCODONE/APAP 5-325MG TABLET PO PRN (10:33)
[2017-06-08 11:17] VITALS: BP 142/67
--- NOTE | 2017-06-08 12:20 | NUR ---
DURING CASE MANAGEMENT MEETING,DISCUSSED THAT PATIENT PRESENT WITH CELLULITIS, LARGE ULCER TO LEFT LOWER LEG ON ADMISSION TOLERATING CURRENT DIET,PO INTAKE HAS BEEN IMPROVING EATING 50-100% OF MEALS BMI 31.6-OBESITY,NO SIGNIFICANT WEIGHT CHANGES NOTICED LABS;06/06 TIBC-217(L),ALBUMIN-2.8(L) SKIN:CELLULITES, MEDICATION: COLACE,IVF ANTIBIOTICS,ZINC SULFATE,VITAMIN C, PROTONIX DNI PROTONIX TO BE ADMINISTERED 1HR BEFORE OR 1HR AFTER FOOD NUTRITION DIAGNOSIS: INCREASE NUTRIENT NEEDS RELATED TO WOUND HEALING EVIDENCED BY CELLULITES/ULCER TO LEFT LOWER LEG NUTRITION INTERVENTION: PATIENT IS RECEIVING VITAMIN C, ZINC SULFATE X 14 DAYS ,EATING 100% OF MEALS,WILL CONSIDER BOOST ONCE IF PO INTAKE DECLINE < 60% OF MEALS MONITOR:PO INTAKE,WEIGHT,NEW LABS,SKIN INTEGRITY OUTCOMES: IMPROVE IN SKIN INTEGRITY MAINTAIN 100% OF PO INTAKE DURING HOSPITAL STAY NO N/V/D/C NO SIGNIFICANT WEIGHT CHANGES DURING HOSPITAL STAY Addendum: 06/08/17 at [address] Amended: Links added.
--- NOTE | 2017-06-08 13:46 | NUR ---
Clinical Pharmacy Note: Vancomycin Pharmacy to Dose Subjective: To continue vancomycin in this 72 yo female for indication on cellulitis Objective: height : 167 cm weight: 89 kg BMI 31.6 BUN 21 (06/06) Scr 0.8 (06/06) Wbc 7.9 (06/06) temp 98.7 vanco trough level: 18.7 Assessment/Plan Will slightly decrease dose since trough is 18.7 & indication is cellulitis. Will change from vanco 1250mg IVPB Q17hrs to vanco 125 mg IVPB q20 h for expected trough of 15. Second dose is due today at 1700. Will check trough before 4th scheduled dose (not yet ordered). Will also follow renal function and change to dose per level if appears unstable. Will follow
--- NOTE | 2017-06-08 14:00 | NUR ---
wound care dsg change this pm marcelino well no pain
--- NOTE | 2017-06-08 15:00 | NUR ---
PICTURE TAKEN ON LLE WOUND PRIOR D/C HOME TODAY REFUSED TO TAKE ANOTHER PICTURE ON RT LEG SKIN DISCOLORED
[2017-06-08 15:05] VITALS: BP 106/55
[2017-06-08] MEDS ORDERED: TRAM50TA2 PO (16:27)
[2017-06-08] MEDS ORDERED: ACID1TAB4 PO (16:27)
[2017-06-08] MEDS ORDERED: CADE40GE2 TOP (16:27)
[2017-06-08] MEDS ORDERED: PIPE3.379 IV (16:27)
[2017-06-08] MEDS ORDERED: MAGN400O6 PO (16:27)
[2017-06-08] MEDS ORDERED: ACET325T53 PO (16:27)
[2017-06-08] MEDS ORDERED: ZINC220C8 PO (16:27)
[2017-06-08] MEDS ORDERED: FLUC200T PO (16:27)
[2017-06-08] MEDS ORDERED: PANT40TA2 PO (16:27)
[2017-06-08] MEDS ORDERED: KETO15CR2 TP (16:27)
[2017-06-08] MEDS ORDERED: RXVAN XX (16:27)
[2017-06-08] MEDS ORDERED: DOCU100C36 PO (16:27)
[2017-06-08] MEDS ORDERED: TEMA15CA5 PO (16:27)
[2017-06-08] MEDS ORDERED: ASCO500T9 PO (16:27)
[2017-06-08] MEDS ORDERED: LORA-258 PO (16:28)
[2017-06-08] MEDS ORDERED: VANCOMYCIN IV 1,250 MG in IV DEXTROSE 5% 500 ML IV SCH (17:00)
--- NOTE | 2017-06-08 17:30 | NUR ---
D/C INSTRUCTION REGARDING D/C TO SNF [facility] TODAY EXPLAINED TO PATIENT ,VERBALIZES UNDERSTAND AND SIGNS D/C SHEET NO PAIN OR ANY ACUTE DISTRESS EDUCATION PK GIVEN AND REPORT GIVEN TO NURSE ZAK VIA TEL PATIENT HAVE HL FOR IVPB CONTINUE AT SNF ORDER
[2017-06-08 20:00] VITALS: BP 142/82
--- NOTE | 2017-06-08 20:50 | NUR ---
PATIENT WAS PICKED UP BY AMBULANCE TO [facility], AM NURSE GAVE REPORT TO ZAK, TAKEN ALL BELONGING, PATIENT IN FAIR STABLE CONDITION.
[2017-06-08] MEDS ORDERED: LACTOBACILLUS RHAMNOSUS GG 1 EACH CAPSULE PO SCH (21:00)
== END 2017-06-08 20:48 | DRG 264 ==
LOC: ER 17:26 → TELE 22:47 → MED 06-06 20:00
PROVIDERS: ADMIT Internal Medicine; ATTEND Internal Medicine
PROC: 0JBP0ZZ Excision of Left Lower Leg Subcutaneous Tissue and Fascia, Open Approach (ICD-10-PCS; principal; 2017-06-06)
DX: I87.2 Venous insufficiency (chronic) (peripheral) (principal); L03.116 Cellulitis of left lower limb; D68.59 Other primary thrombophilia; L97.329 Non-pressure chronic ulcer of left ankle with unspecified severity; B35.1 Tinea unguium; I73.9 Peripheral vascular disease, unspecified; G30.9 Alzheimer's disease, unspecified; B36.9 Superficial mycosis, unspecified; F02.80 Dementia in other diseases classified elsewhere, unspecified severity, without behavioral disturbance, psychotic disturbance, mood disturbance, and anxiety; E66.9 Obesity, unspecified; L08.89 Other specified local infections of the skin and subcutaneous tissue; Z68.31 Body mass index [BMI] 31.0-31.9, adult; I89.0 Lymphedema, not elsewhere classified; E78.5 Hyperlipidemia, unspecified; Z74.09 Other reduced mobility; Z98.51 Tubal ligation status; K80.20 Calculus of gallbladder without cholecystitis without obstruction; K57.90 Diverticulosis of intestine, part unspecified, without perforation or abscess without bleeding; I11.9 Hypertensive heart disease without heart failure; F41.9 Anxiety disorder, unspecified; F32.9 Major depressive disorder, single episode, unspecified; Z79.899 Other long term (current) drug therapy; Z87.440 Personal history of urinary (tract) infections
CPT/HCPCS: 36415; 70030-TC; 71010; 73610; 83550; 83605; 83735; 84100; 84443; 85025; 85730; 86706; 86803; 87040; 87070; 87077; 87086; 87340; 87806; 93005; A4663; J1170; J2270; J2405; J2543; J3370; J3490; J7030; J7060